=== PATIENT | male | born 1950 | race Caucasian/White ===

== ENCOUNTER 2017-11-23 13:55 | Outpatient (CLI) | payer BC, MEDICARE, OTHER | END 2017-11-23 13:56 | disposition home or self-care (01) | LOC: BICRAD 13:55 | PROVIDERS: ATTEND Family Medicine | DX: J21.9 Acute bronchiolitis, unspecified (principal) | CPT/HCPCS: 71046 ==

== ENCOUNTER 2018-08-28 14:26 | Inpatient (IN) | payer BC, MEDICARE, OTHER ==
[2018-08-28 14:55] LABS: #Eosinphils 0.4 thou/uL (0.0-0.7); #Lymphocytes 0.8 thou/uL (1.20-3.40); #Monocytes 0.7 thou/uL (0.11-0.59); %Basophils 0.4 % (0.0-1.0); %Eosinophils 3.2 % (0.0-10.0); %Lymphocytes 6.9 % (21.0-51.0); %Monocytes 6.1 % (0.0-10.0); %Neutrophils 83.4 % (42.0-75.0); Hemoglobin 14.4 g/dL (14.0-18.0); Mean Corpuscular HGB CONC 33.6 g/dL (32.0-36.0); Mean Corpuscular Hemoglobin 29.7 pg (27.0-31.0); Mean Corpuscular Volume 88.3 fL (78.0-98.0); Mean Platelet Volume 8.2 fL (7.4-10.4); Platelet Count 242 thou/uL (130-400); RBC Distribution Width 11.8 % (11.5-14.5); Red Blood Cell (RBC) Count 4.85 mill/uL (4.70-6.10)
[2018-08-28 15:04] LABS: Lactate 1.67 mmol/L (0.50-2.20)
[2018-08-28 15:12] LABS: Bilirubin Negative (Negative); Blood, Urine Negative (Negative); Clarity CLEAR (Clear); Glucose, Urine (Dipstick) Negative (Negative); Leukocyte Negative (Negative); Nitrite Negative (Negative); Protein, Urine (Dipstick) Negative (Neg-Trace); Specific Gravity, Urine 1.012 (1.002-1.036); Urobilinogen 0.2 mg/dL (0.2-1.0); pH, Urine 5.5 (5.0-9.0)
[2018-08-28 15:17] LABS: ALT (SGPT) 22 U/L (8-55); AST (SGOT) 19 U/L (5-34); Albumin 4.4 g/dL (3.4-4.8); Alkaline Phosphatase 65 U/L (40-150); Anion Gap 13 mmol/L (10-20); BUN (Urea Nitrogen) 11 mg/dL (8.4-25.7); Bilirubin, Total 0.7 mg/dL (0.2-1.2); Calc. Creatinine Clearance 0 mL/min (70-130); Calcium 9.6 mg/dL (7.8-10.44); Carbon Dioxide 27 mmol/L (23-31); Chloride 94 mmol/L (98-107); Estimated GFR-MDRD 74; Globulin 3.1 g/dL (2.4-3.5); Glucose 117 mg/dL (80-115); Potassium 3.9 mmol/L (3.5-5.1); Protein, Total 7.5 g/dL (5.8-8.1); Sodium 130 mmol/L (136-145)
--- NOTE | 2018-08-28 15:20 | RAD ---
PORTABLE CHEST: Date: 08/28/18 HISTORY: Dyspnea. FINDINGS: Lung sheehan are clear. Heart and mediastinum unremarkable. Vascular markings normal. IMPRESSION: No acute findings. POS: [facility]
[2018-08-28] MEDS ORDERED: Dexamethasone 4 MG TAB ONE (16:14)
[2018-08-28] MEDS ORDERED: Acetaminophen 500 MG TAB ONE (16:14)
[2018-08-28] MEDS ORDERED: cefTRIAXone\\ROCEPHIN 2 GM VIAL ONE (16:14)
[2018-08-28] MEDS ORDERED: Ketorolac Tromethamine 30 MG/ML VIAL ONE (16:14)
[2018-08-28] MEDS ORDERED: Azithromycin 500 MG VIAL ONE ×2 (18:12→18:16)
[2018-08-28] MEDS ORDERED: Levalbuterol HCl 0.63 MG/3 ML NEB NEB PRN (19:33)
[2018-08-28 20:50] VITALS: BMI 34.2
[2018-08-28] MEDS: guaiFENesin ER 600 MG TAB PO SCH (22:14)
[2018-08-28] MEDS: Atorvastatin Calcium 10 MG TAB PO SCH (22:15)
--- NOTE | 2018-08-29 00:24 | HP ---
DATE OF ADMISSION: 08/28/2018 PRIMARY CARE PHYSICIAN: Jose Rae MD CHIEF COMPLAINT: Cough and shortness of breath. HISTORY OF PRESENT ILLNESS: This is a 68-year-old gentleman with a history of hypertension, hyperlip idemia, obstructive sleep apnea, and BPH who presented to the Emergency Department with 3 days of wor sening cough and shortness of breath. The patient states that he went camping and fishing about a we ek ago and then about 3 or 4 days ago, developed runny nose, nasal drainage, worsening cough to the oint where he got short of breath with coughing and could not catch his breath today. He presented t o the Emergency Department and was given steroids, antibiotics, nebulizer treatments with some relief , but because of his tachycardia and continued shortness of breath, he is being admitted for further evaluation and treatment. PAST MEDICAL HISTORY: Hypertension; hyperlipidemia; obstructive sleep apnea, on CPAP; BPH; history o f allergies; and gastroesophageal reflux disease. MEDICATIONS: Metoprolol succinate 50 mg daily, pravastatin 40 mg daily, Cialis 20 mg daily, lisinopr il/hydrochlorothiazide 20/25 once daily, Flomax 0.4 mg daily, omeprazole 40 mg daily, aspirin 81 mg d aily. ALLERGIES: Prednisone. PAST SURGICAL HISTORY: None. PAST HOSPITALIZATIONS: None. SOCIAL HISTORY: No smoking. Occasional alcohol. He is with children. 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 REVIEW OF SYSTEMS: As per the history of present illness. Constitutional: He denies any recent fev ers, chills, or recent illness. HEENT: Positive congestion. No headache. No visual or hearing nelida nges. Cardiac: Denies chest pain, palpitations. Positive for tachycardia. Pulmonary: Positive co ugh. Positive shortness of breath. He states that he did have an episode of walking pneumonia last year, was treated as an outpatient, but took a prolonged period of treatment for it to resolve. Posi tive history of allergies. No history of asthma that he knows of. Gastrointestinal: No nausea, vom iting, abdominal pain, melena, or hematochezia. Genitourinary: Denies dysuria or hematuria. Neurol ogic: No weakness, seizures, or syncope. PHYSICAL EXAMINATION: VITAL SIGNS: Temperature 99.5, pulse of 107-120, respirations 20, blood pressure 131/76, pulse ox is 94% on room air. GENERAL: He is awake and alert. He is flushed, but in no acute distress. HEENT: Mucosa is moist. NECK: Supple. HEART: Tachycardic without murmurs. LUNGS: With rhonchi throughout. Decreased aeration. Positive expiratory wheezes. ABDOMEN: Obese, soft, nontender, nondistended. EXTREMITIES: No clubbing, cyanosis, or edema. 2+ peripheral pulses bilaterally. LABORATORY DATA: White blood cell count 12,000, hemoglobin and hematocrit 14.4 and 42.8, platelets o f 242. Slight left shift with 84% neutrophils, 6.9% lymphocytes. Sodium 130, potassium 3.9, chlorid e 94, CO2 of 27, BUN and creatinine 11 and 1. Serum glucose was 117. Lactic acid of 1.6, calcium of 9.6. Normal liver enzymes. Urinalysis was normal. Chest x-ray showed no active disease. ASSESSMENT AND PLAN: This is a 68-year-old gentleman with past medical history as described above, n ow with acute respiratory illness, likely secondary to asthmatic bronchitis versus reactive airway di sease. 1. Pneumonitis. We will continue oral Zithromax and start IV steroids and nebulizer treatments. 2. Hypertension. We will continue his oral meds. 3. Hyperlipidemia. We will continue his pravastatin. 4. Gastroesophageal reflux disease. We will continue proton pump inhibitor. 5. Obstructive sleep apnea. He will continue his CPAP from home. DISPOSITION: Likely a short stay. Hopefully, he will improve with the steroids and neb treatments.
[2018-08-29] MEDS: Tamsulosin HCl 0.4 MG CAP PO SCH (08:07)
[2018-08-29] MEDS: Aspirin 81 mg Enteric Coated Tablet PO SCH (08:07)
[2018-08-29] MEDS: guaiFENesin ER 600 MG TAB PO SCH ×2 (08:07→21:37)
[2018-08-29] MEDS ORDERED: 1/2 NS w/KCL 20 mEq 1,000 ML IV SCH (08:15)
--- NOTE | 2018-08-29 08:33 | PRG ---
DATE OF SERVICE: 08/29/2018 SUBJECTIVE: The patient is feeling better than upon admission. Still with a cough. OBJECTIVE: VITAL SIGNS: Temperature 97.5, pulse 94, respirations 18, pulse ox 96, blood pressure 139/78. HEART: Regular rate and rhythm. LUNGS: With bilateral expiratory wheezes. ABDOMEN: Soft. EXTREMITIES: With no edema. LABORATORY: Sodium was 130, potassium 3.9, chloride 94, blood sugar 117. This was done on 8. ASSESSMENT: 1. Pneumonitis. 2. Hypertension. 3. Hyperlipidemia. 4. Reflux. 5. Sleep apnea. PLAN: 1. Continue IV hydration. 2. Continue Zithromax and Solu-Medrol. 3. Continue neb treatments q.8h. 4. Continue to follow.
[2018-08-29] MEDS ORDERED: Lisinopril/Hydrochlorothiazide 20/25 mg Tablet PO SCH (09:00)
[2018-08-29] MEDS ORDERED: Azithromycin 250 MG TAB PO SCH (09:00)
[2018-08-29] MEDS: Lisinopril/Hydrochlorothiazide 10 mg/12.5 mg Tablet PO SCH (11:13)
[2018-08-29] MEDS: Albuterol Sulfate 1.25 MG/3 ML NEB NEB SCH ×2 (15:10→22:10)
[2018-08-29] MEDS ORDERED: Levalbuterol HCl 0.63 MG/3 ML NEB NEB PRN (17:06)
[2018-08-29 17:24] LABS: Anion Gap 9 mmol/L (10-20); BUN (Urea Nitrogen) 12 mg/dL (8.4-25.7); Calc. Creatinine Clearance 98 mL/min (70-130); Calcium 9.4 mg/dL (7.8-10.44); Carbon Dioxide 24 mmol/L (23-31); Chloride 101 mmol/L (98-107); Estimated GFR-MDRD 76; Glucose 166 mg/dL (80-115); Potassium 3.8 mmol/L (3.5-5.1); Sodium 130 mmol/L (136-145)
[2018-08-29] MEDS: diphenhydrAMINE 25 MG CAP PO PRN (17:31)
[2018-08-29] MEDS: Acetaminophen 325 MG TAB PO PRN (17:31)
[2018-08-29] MEDS: Sodium Chloride 0.9% 1,000 ML IV SCH (18:07)
[2018-08-29] MEDS: Atorvastatin Calcium 10 MG TAB PO SCH (21:37)
[2018-08-30 05:01] LABS: #Lymphocytes 0.8 thou/uL (1.20-3.40); #Neutrophils 14.3 thou/uL (1.40-6.50); %Eosinophils 0.1 % (0.0-10.0); %Lymphocytes 4.8 % (21.0-51.0); %Monocytes 6.1 % (0.0-10.0); %Neutrophils 88.9 % (42.0-75.0); Hemoglobin 13.2 g/dL (14.0-18.0); Mean Corpuscular HGB CONC 31.6 g/dL (32.0-36.0); Mean Corpuscular Hemoglobin 28.6 pg (27.0-31.0); Mean Corpuscular Volume 90.4 fL (78.0-98.0); Mean Platelet Volume 8.7 fL (7.4-10.4); Platelet Count 271 thou/uL (130-400); RBC Distribution Width 12.3 % (11.5-14.5); Red Blood Cell (RBC) Count 4.64 mill/uL (4.70-6.10)
[2018-08-30] MEDS: Sodium Chloride 0.9% 1,000 ML IV SCH ×2 (05:24→09:19)
[2018-08-30 05:32] LABS: Anion Gap 13 mmol/L (10-20); BUN (Urea Nitrogen) 13 mg/dL (8.4-25.7); Calc. Creatinine Clearance 110 mL/min (70-130); Calcium 8.9 mg/dL (7.8-10.44); Carbon Dioxide 23 mmol/L (23-31); Chloride 101 mmol/L (98-107); Estimated GFR-MDRD 86; Glucose 108 mg/dL (80-115); Potassium 3.9 mmol/L (3.5-5.1); Sodium 133 mmol/L (136-145)
[2018-08-30] MEDS: Albuterol Sulfate 1.25 MG/3 ML NEB NEB SCH (07:10)
[2018-08-30] MEDS ORDERED: cefTRIAXone\\ROCEPHIN 1 GM in Sodium Chloride 0.9% 100 ML IVPB SCH (09:00)
[2018-08-30] MEDS ORDERED: Magnesium 2 GM/50 ML 2 GM in Premix Bag 1 BAG IVPB SCH (09:15)
[2018-08-30] MEDS ORDERED: Magnesium 2 GM/NS 0.9% 100 ML 2 GM in Premix Bag 1 BAG IVPB SCH (09:15)
[2018-08-30] MEDS: Tamsulosin HCl 0.4 MG CAP PO SCH (09:19)
[2018-08-30] MEDS: Aspirin 81 mg Enteric Coated Tablet PO SCH (09:19)
[2018-08-30] MEDS: guaiFENesin ER 600 MG TAB PO SCH ×2 (09:19→20:35)
[2018-08-30] MEDS: diphenhydrAMINE 25 MG CAP PO PRN (09:27)
[2018-08-30] MEDS: Acetaminophen 325 MG TAB PO PRN (09:27)
--- NOTE | 2018-08-30 10:06 | RAD ---
PA AND LATERAL CHEST: HISTORY: Followup of pneumonia. COMPARISON: 08/28/2018 study. FINDINGS: Heart size and mediastinum are within normal limits. The lungs are clear of any infiltrative process . There are atherosclerotic changes of the aorta. Minimal blunting to the posterior sulci are seen. IMPRESSION: No acute infiltrative process. Minimal blunting to the posterior sulci. POS: [facility]
--- NOTE | 2018-08-30 10:30 | PRG ---
DATE OF SERVICE: 08/30/2018 SUBJECTIVE: The patient is feeling better today, but continues to have wheezing. Last night had joseph e flushing, unsure of the etiology, may be due to the steroids versus neb treatments. He has had thi s in the past. OBJECTIVE: VITAL SIGNS: Temperature 97.7, pulse 73, respirations 20, pulse ox 98, blood pressure 152/82. HEART: Regular rate and rhythm. LUNGS: With bilateral expiratory wheezing still present. ABDOMEN: Soft. EXTREMITIES: With trace edema. LABORATORY: White count 16.0, increased from 12, H&H 13 and 41. Sodium 133, potassium 3.9, CO2 23, creatinine 0.88, BUN 13, blood sugar 108. ASSESSMENT: 1. Pneumonia. 2. Reactive airway disease. 3. Hypertension. 4. Hyperlipidemia. 5. Reflux. 6. Sleep apnea. PLAN: We will consult Pulmonary. Need to rule out any other possible etiologies. Patient respondin g slowly. Must also consider pulmonary embolism versus congestive heart failure.
[2018-08-30] MEDS: Lisinopril/Hydrochlorothiazide 10 mg/12.5 mg Tablet PO SCH (12:06)
[2018-08-30] MEDS: Mometasone/Formoterol 120 PUFF INHALER INH SCH (18:40)
[2018-08-30] MEDS: Doxycycline 100 MG CAP PO SCH (20:35)
[2018-08-30] MEDS: Atorvastatin Calcium 10 MG TAB PO SCH (20:35)
[2018-08-30] MEDS: Amlodipine 5 MG TAB PO SCH (20:35)
[2018-08-31] MEDS: Sodium Chloride 0.9% 1,000 ML IV SCH ×2 (00:06→08:37)
--- NOTE | 2018-08-31 00:39 | CON ---
DATE OF CONSULTATION: 08/30/2018 HISTORY OF PRESENT ILLNESS: Krishna is a 68-year-old gentleman who was admitted to the hospital with c ough, bronchitis and shortness of breath of several days' duration. He said he went on a camping tri p and developed some coughing episode without any fever or chills. Sputum was clearly. He had postn baldemar drip symptoms. He had a recent cardiac workup, which was negative. In November of last year, almost a year ago, he h ad similar symptoms of coughing and congestion. Some years ago, he had a poison roman rash for which rossana michelle was given prednisone. He told he had some kind of reaction with tachycardia, though he did get joseph e prednisone last year. He is concerned about prednisone causing side effects. Apparently, nonsmoker. As a child, he had a history of bronchitis and pneumonia frequently. No hist ory of TB. No known history of asthma. PAST MEDICAL HISTORY: Otherwise pertinent for hypertension. PAST SURGICAL HISTORY: None recently. MEDICATIONS: List of medicines from home includes metoprolol 50, pravastatin 40, Cialis 20, lisinopr il/hydrochlorothiazide 20/25, Flomax 0.4, omeprazole 40, aspirin 81. ALLERGIES: None. 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 Alcohol, none. Tobacco, none. REVIEW OF SYSTEMS: Ten-point negative. PHYSICAL EXAMINATION: VITAL SIGNS: His blood pressure is 115/82, pulse 70, respirations 20, sats 98%, temperature 97. CHEST: Decreased breath sounds with diffuse wheezing. CARDIAC: Normal S1, S2. ABDOMEN: Soft. No masses. LABORATORY DATA: Sodium was 130, is 133 now. White count 16,000. Chest x-ray is normal. IMPRESSION: 1. Bronchitis exacerbation. 2. Hypertension. 3. Hyponatremia. 4. Nonsmoker. 5. Recent cardiac workup negative. PLAN: Avoid beta blockers. Avoid CLAIR. He is hyponatremic from the diuretic. Added Symbicort to hi s neb treatments. Change his blood pressure medication to Norvasc 10 mg a day. We will follow. This is a consultation note, 70 minutes of which 50% in direct patient care.
--- NOTE | 2018-08-31 07:56 | PRG ---
DATE OF SERVICE: 08/31/2018 SUBJECTIVE: The patient states he has had an increased cough last night. No complaints of chest adrian n. He states he is feeling different. Yesterday he had multiple medication changes. OBJECTIVE: VITAL SIGNS: Temperature 97.5, pulse 82, respirations 18, pulse ox 99, blood pressure 148/75, 168/64 . HEART: Regular rate and rhythm. LUNGS: Increased breath sounds bilaterally with expiratory wheezes still present. ABDOMEN: Soft. LABORATORY: Sodium 133. ASSESSMENT: 1. Bronchitis exacerbation. 2. Hypertension. 3. Hyponatremia. 4. Nonsmoker. 5. Recent cardiac workup negative. PLAN: 1. Possible discharge today if okay with Dr. Schrader. 2. Plan to discharge on amlodipine, Medrol Dosepak and doxycycline. 3. Follow up in 2-3 days. 4. We will hold the lisinopril/HCTZ and the metoprolol for now.
[2018-08-31] MEDS: Doxycycline 100 MG CAP PO SCH ×2 (08:14→20:51)
[2018-08-31] MEDS: Aspirin 81 mg Enteric Coated Tablet PO SCH (08:16)
[2018-08-31] MEDS: guaiFENesin ER 600 MG TAB PO SCH ×2 (08:16→20:50)
[2018-08-31] MEDS: Amlodipine 5 MG TAB PO SCH (08:16)
[2018-08-31] MEDS: Tamsulosin HCl 0.4 MG CAP PO SCH (08:17)
[2018-08-31] MEDS ORDERED: Amlodipine 5 MG TAB PO SCH (09:00)
--- NOTE | 2018-08-31 09:37 | PRG ---
DATE OF SERVICE: 08/31/2018 He is a 68-year-old gentleman, he is better. PHYSICAL EXAMINATION: VITAL SIGNS: Blood pressure is slightly elevated 168/64, O2 sats are 90% on room air, temperature 97 , respirations 18. CHEST: Wheezing much improved. CARDIAC: Normal S1, S2. No gallops. ABDOMEN: Soft, no masses. IMPRESSION: 1. Bronchial asthma exacerbation. 2. Hypertension. PLAN: He may need a second antihypertensive medication on top of his Norvasc. Hopefully, once his a sthma gets better his blood pressure may improve. P.o. prednisone, neb treatments and supportive care. Home in the next 24 hours.
[2018-08-31] MEDS: Mometasone/Formoterol 120 PUFF INHALER INH SCH ×2 (10:26→18:53)
--- NOTE | 2018-08-31 10:34 | PQF ---
DATE: 08-31-18 ATTN: DR. CYNTHIA FRENCH Please exercise your independent, professional judgment in responding to the clarification form. Clinical indicators are provided on the bottom of this form for your review Please check appropriate box(s) to clarify if the following diagnosis has been ruled in or ruled out: PNEUMONITIS [ ] Ruled in diagnosis [ ] Continue to treat [ ] Resolved [ ] Ruled out diagnosis [ ] Other diagnosis [ ] Unable to determine In addition, please specify: Present on Admission (POA): [ ] Yes [ ] No [ ] Unable to determine For continuity of documentation, please document condition throughout progress notes and discharge summary. Thank You. CLINICAL INDICATORS - SIGNS / SYMPTOMS / LABS ER DX: PNEUMONIA, TACHYCARDIA H&P: NOW WITH ACUTE RESPIRATORY ILLNESS, LIKELY SECONDARY TO ASTHMATIC BRONCHITIS VS REACTIVE AIRWAY DISEASE. PNEUMONITIS. CONSULT NOTE Obi GAMBOA 08-30-18: BRONCHITIS EXACERBATION TEMP ER: 99.5, 100.2 RECTAL, 99.5, 99.1 ER: PRODUCTIVE COUGH, NASAL DRAINAGE, SOB RISK FACTORS: CONSULT NOTE DR. GAMBOA 08-30-18: A CHILD , HE HAD HX OF BRONCHITIS AND PNEUMONIA FREQ TREATMENTS: ER: AZITHROMYCIN IV, ROCEPHIN INJ, DUONEB (This form is maintained as a part of the permanent medical record) 2014 [id number]. All Rights Reserved TERENCE [email or web address] Office: [phone] ARELI
[2018-08-31] MEDS: Atorvastatin Calcium 10 MG TAB PO SCH (20:50)
[2018-08-31] MEDS ORDERED: Montelukast Sodium 10 mg Tablet PO SCH (21:00)
[2018-09-01] MEDS: diphenhydrAMINE 25 MG CAP PO PRN (00:31)
[2018-09-01] MEDS: Sodium Chloride 0.9% 1,000 ML IV SCH (00:32)
[2018-09-01] MEDS: Mometasone/Formoterol 120 PUFF INHALER INH SCH (06:35)
[2018-09-01] MEDS: Aspirin 81 mg Enteric Coated Tablet PO SCH (07:23)
[2018-09-01] MEDS: Tamsulosin HCl 0.4 MG CAP PO SCH (07:23)
[2018-09-01] MEDS: Doxycycline 100 MG CAP PO SCH (07:23)
[2018-09-01] MEDS: guaiFENesin ER 600 MG TAB PO SCH (07:23)
[2018-09-01 07:33] VITALS: TEMP 98
[2018-09-01] MEDS ORDERED: predniSONE 20 MG TAB PO SCH (08:00)
--- NOTE | 2018-09-01 08:18 | PRG ---
DATE OF SERVICE: 09/01/2018 SUBJECTIVE: The patient still with a productive cough. Feeling flush from the steroids. OBJECTIVE: VITAL SIGNS: Temperature 98.0, pulse 111, respirations 20, pulse ox 95 on room air, blood pressure 1 84/84. HEART: Regular rate and rhythm. LUNGS: With bilateral expiratory wheezing still present. ABDOMEN: Soft. EXTREMITIES: With a little trace edema. ASSESSMENT: 1. Bronchial asthma exacerbation. 2. Pneumonitis. 3. Hypertension. 4. Hyponatremia. 5. Nonsmoker. 6. Recent cardiac workup negative. PLAN: 1. Hep-Lock IV. 2. Start clonidine 0.1 p.o. b.i.d. 3. CBC and BMP today. 4. We will continue to follow. Hopefully, can go home soon.
[2018-09-01 08:32] VITALS: BP 177/79
[2018-09-01 08:56] LABS: #Eosinphils 0.1 thou/uL (0.0-0.7); #Monocytes 1.3 thou/uL (0.11-0.59); #Neutrophils 10.5 thou/uL (1.40-6.50); %Basophils 0.3 % (0.0-1.0); %Eosinophils 0.5 % (0.0-10.0); %Lymphocytes 7.6 % (21.0-51.0); %Monocytes 9.9 % (0.0-10.0); %Neutrophils 81.8 % (42.0-75.0); Hemoglobin 13.2 g/dL (14.0-18.0); Mean Corpuscular HGB CONC 32.2 g/dL (32.0-36.0); Mean Corpuscular Hemoglobin 29.2 pg (27.0-31.0); Mean Corpuscular Volume 90.6 fL (78.0-98.0); Mean Platelet Volume 8.3 fL (7.4-10.4); Platelet Count 241 thou/uL (130-400); RBC Distribution Width 12.4 % (11.5-14.5); Red Blood Cell (RBC) Count 4.52 mill/uL (4.70-6.10); White Blood Cell (WBC) Count 12.8 thou/uL (4.8-10.8)
[2018-09-01] MEDS ORDERED: Amlodipine 10 MG TAB PO SCH (09:00)
[2018-09-01] MEDS ORDERED: cloNIDine 0.1 MG TAB PO SCH (09:00)
--- NOTE | 2018-09-01 09:25 | PRG ---
DATE OF SERVICE: 09/01/2018 SUBJECTIVE: Mr. Дмитрий Keller is a 68-year-old gentleman who this morning is complaining of being sw ollen. Clearly swollen. OBJECTIVE: VITAL SIGNS: His temperature is 98, pulse 111, blood pressure 177/79, sats are on room air, re spiration 20. CHEST: Reveals occasional wheeze. CARDIAC: Normal S1, S2. No gallops. ABDOMEN: Soft, no mass. IMPRESSION: Bronchial asthma with recent exacerbation, bronchitis, hypertension. PLAN: He can be discharged home to be followed by his primary care physician. He can see in the office in about a month. We will probably do a PFT at that time.
[2018-09-01 10:49] LABS: Chloride 101 mmol/L (98-107); Potassium 4.5 mmol/L (3.5-5.1); Sodium 134 mmol/L (136-145)
[2018-09-01 10:50] LABS: Glucose 129 mg/dL (80-115)
[2018-09-01 10:52] LABS: Anion Gap 13 mmol/L (10-20); Carbon Dioxide 25 mmol/L (23-31)
[2018-09-01 10:53] LABS: Calc. Creatinine Clearance 106 mL/min (70-130); Estimated GFR-MDRD 83
[2018-09-01 10:54] LABS: BUN (Urea Nitrogen) 12 mg/dL (8.4-25.7)
--- NOTE | 2018-09-01 12:18 | DIS ---
DATE OF ADMISSION: 08/28/2018 DATE OF DISCHARGE: 09/01/2018 DISCHARGE DIAGNOSES: 1. Bronchial asthma exacerbation. 2. Pneumonitis. 3. Hypertension. 4. Hyponatremia. 5. Nonsmoker. 6. Recent cardiac workup negative. DISCHARGE MEDICATIONS: Norvasc 5 mg p.o. b.i.d., clonidine 0.1 p.o. b.i.d., doxycycline 100 p.o. b.i .d. #[address] Schrader. BRIEF HISTORY: This is a 68-year-old white male with a history of hypertension, hyperlipidemia, slee p apnea, and BPH, who presented with cough and shortness of breath. Patient just returned from camping trip outdoors in the [place] burning fire nightly. He returned home with congestion, cough wh ere it became progressively worse and at the point to where he presented to the emergency room and wa s admitted. HOSPITAL COURSE: The patient was started on IV antibiotics, IV steroids, Solu-Medrol and neb treatme nts. He remained somewhat tachycardic with bilateral expiratory wheezes. Over several days, he impr lavonne gradually. He still is wheezing; however, he has improved. He will be discharged at this time and follow up in the office in the next few days. His metoprolol, beta eladio was stopped as well a s his lisinopril. He was started on Norvasc and clonidine and will continue to monitor until his sym ptoms resolve.
== END 2018-09-01 11:56 | disposition home or self-care (01) | DRG 202 ==
LOC: ERS 14:26 → T4-A 18:36
PROVIDERS: ADMIT Family Medicine; ATTEND Family Medicine
DX: J45.901 Unspecified asthma with (acute) exacerbation (principal); J18.9 Pneumonia, unspecified organism; E87.1 Hypo-osmolality and hyponatremia; I10 Essential (primary) hypertension; E78.5 Hyperlipidemia, unspecified; G47.33 Obstructive sleep apnea (adult) (pediatric); N40.0 Benign prostatic hyperplasia without lower urinary tract symptoms; K21.9 Gastro-esophageal reflux disease without esophagitis; Z79.899 Other long term (current) drug therapy; Z79.82 Long term (current) use of aspirin; Z88.8 Allergy status to other drugs, medicaments and biological substances
CPT/HCPCS: 36415; 71045; 71046; 80048; 80053; 81003; 83605; 83880; 85025; 85379; 87040; 87804; 93005; 94640; 94660; 94760; 96361; 96365; 96367; 96375; J0456; J0696; J1885; J2920; J7050; J7506; J7614; J7620; J8540

== ENCOUNTER 2018-09-05 11:32 | Outpatient (CLI) | payer BC, MEDICARE, OTHER ==
--- NOTE | 2018-09-05 14:39 | RAD ---
PA AND LATERAL CHEST: Date: 09/05/18 HISTORY: Follow-up pneumonia. COMPARISON: 08/30/18. FINDINGS: Cardiac silhouette and pulmonary vasculature are within normal limits. There are patchy parenchymal d ensities seen overlying the posterior lung bases, only well seen on the lateral view and more promine nt than on the prior exam. This could be related to focal area of pneumonia or atelectasis. Lungs oth erwise appear clear. Vascular calcifications seen in thoracic aorta. IMPRESSION: 1. Patchy parenchymal opacity overlying the posterior lung bases, only well seen on the lateral proj ection, and is more prominent than on the prior exam. This could be related to either atelectasis or developing pneumonia. 2. Stable minimal blunting of the posterior costophrenic angles, which may represent tiny bilateral pleural effusions. POS: [facility]
== END 2018-09-05 11:33 | disposition home or self-care (01) ==
LOC: BICRAD 11:32
PROVIDERS: ATTEND Family Medicine
DX: J18.9 Pneumonia, unspecified organism (principal)
CPT/HCPCS: 71046

== ENCOUNTER 2018-11-04 15:59 | Emergency (ER) | payer BC, MEDICARE, OTHER ==
--- NOTE | 2018-11-04 17:27 | ULT ---
RIGHT LOWER EXTREMITY VENOUS DOPPLER 11/04/18 HISTORY: Pain, edema. COMPARISON: None. TECHNIQUE: Real time prince scale, color doppler and spectral analysis of the right lower extremity venous system was performed. The common femoral, femoral, proximal portion of the greater saphenous and deep femora l veins as well as the popliteal and posterior tibial veins are interrogated. Normal low, augmentation and compression. IMPRESSION: No deep venous thrombosis. POS: [facility]
== END 2018-11-04 17:41 | disposition home or self-care (01) ==
LOC: ERS 15:59
DX: M79.89 Other specified soft tissue disorders (principal); N40.0 Benign prostatic hyperplasia without lower urinary tract symptoms; G47.30 Sleep apnea, unspecified; E78.5 Hyperlipidemia, unspecified; I10 Essential (primary) hypertension; Z79.899 Other long term (current) drug therapy; Z79.82 Long term (current) use of aspirin